=== PATIENT | female | born 1960 | race Two or more races ===

== ENCOUNTER 2021-07-27 21:51 | Inpatient (IN) | payer MEDICARE, OTHER ==
[~2021-07-27] VITALS: Ht 162.6 cm; Wt 823.3 kg
[2021-07-27 23:15] LABS: Basophils # (auto) 0.1 10 ^3/uL (0-0.2); Basophils % (auto) 0.9 % (0.0-2.0); Eosinophils # (auto) 0.1 10 ^3/uL (0-0.8); Eosinophils % (auto) 1.5 % (0.0-7.0); Hematocrit 43.5 % (36.0-46.0); Hemoglobin 14.7 g/dL (12.2-16.2); Lymphocytes # (auto) 0.9 10 ^3/uL (0.4-5.4); Lymphocytes % (auto) 12.6 % (10.0-50.0); Mean Corpuscular Hemoglobin 32.7 pg (28.0-32.0); Mean Corpuscular Hgb Conc. 33.8 g/dL (32.0-36.0); Mean Corpuscular Volume 96.9 fL (80.0-100.0); Monocytes # (auto) 0.6 10 ^3/uL (0-1.3); Monocytes % (auto) 8.4 % (0.0-12.0); Neutrophils # (auto) 5.4 10 ^3/uL (1.6-8.6); Neutrophils % (auto) 76.6 % (37.0-80.0); Nucleated Red Blood Cells % 0.1 %; Red Blood Cells 4.48 10^6/uL (4.0-5.20); Red Cell Distribution Width 13.6 % (11.8-14.3); White Blood Cell 7.1 10^3/uL (4.4-10.8)
[2021-07-27] MEDS ORDERED: MORPHINE SULFATE 4 MG/ML SYR/VIAL IV ONE (23:15)
[2021-07-27] MEDS ORDERED: ONDANSETRON HCL 4 MG/2 ML VIAL IV ONE (23:15)
[2021-07-27] MEDS ORDERED: IODIXANOL 320MG/ML 100ML BTL IV ONE (23:25)
[2021-07-27 23:31] LABS: Albumin 3.5 g/dL (3.4-5.0); BUN/Creatinine Ratio 17.5; Calcium 9.6 mg/dL (8.5-10.1); Potassium 4.3 mmol/L (3.5-5.1)
[2021-07-27 23:36] LABS: Bilirubin, Total 1.4 mg/dL (0.2-1.0); Total Protein 7.8 g/dL (6.4-8.2)
[2021-07-28 00:52] LABS: INR 1.07 (0.9-1.15); Partial Thromboplastin Time 24.5 sec (23.6-33.0)
[2021-07-28 03:39] LABS: Urine Bacteria NONE SEEN /hpf (None Seen); Urine Blood Negative /uL (Negative); Urine Mucus FEW (None Seen); Urine WBC 4 /hpf (0 - 5)
[2021-07-28 03:40] LABS: Urine Specific Gravity > 1.050 (1.001-1.035)
[2021-07-28] MEDS ORDERED: MORPHINE SULFATE 4 MG/ML SYR/VIAL IV ONE ×2 (03:45→08:00)
[2021-07-28] MEDS ORDERED: ONDANSETRON HCL 4 MG/2 ML VIAL IV PRN (07:45)
[2021-07-28] MEDS ORDERED: MORPHINE SULFATE 4 MG/ML SYR/VIAL IV PRN (07:45)
[2021-07-28] MEDS ORDERED: DEXTROSE (50%) 50ML SYRG IV PRN (07:45)
[2021-07-28] MEDS ORDERED: NITROGLYCERIN 0.4 MG SL TAB SL PRN (07:45)
[2021-07-28] MEDS ORDERED: MORPHINE SULFATE INJECTION 2 MG/ML SYRG IV PRN (07:45)
[2021-07-28] MEDS ORDERED: ONDANSETRON HCL 4 MG/2 ML VIAL IV ONE (08:00)
[2021-07-28] MEDS: FAMOTIDINE (10MG/ML) 2ML VL IV SCH (08:07)
[2021-07-28] MEDS: SODIUM CHLORIDE 0.9% 1,000 ML IV SCH (08:08)
[2021-07-28 08:41] LABS: Basophils # (auto) 0.1 10 ^3/uL (0-0.2); Basophils % (auto) 0.9 % (0.0-2.0); Eosinophils # (auto) 0.1 10 ^3/uL (0-0.8); Eosinophils % (auto) 0.8 % (0.0-7.0); Hemoglobin 14.4 g/dL (12.2-16.2); Lymphocytes # (auto) 0.8 10 ^3/uL (0.4-5.4); Mean Corpuscular Hemoglobin 33.2 pg (28.0-32.0); Mean Corpuscular Hgb Conc. 34.3 g/dL (32.0-36.0); Mean Corpuscular Volume 96.9 fL (80.0-100.0); Monocytes # (auto) 0.8 10 ^3/uL (0-1.3); Neutrophils % (auto) 78.3 % (37.0-80.0); Red Blood Cells 4.33 10^6/uL (4.0-5.20); Red Cell Distribution Width 13.7 % (11.8-14.3); White Blood Cell 7.6 10^3/uL (4.4-10.8)
[2021-07-28 08:55] LABS: Albumin 3.6 g/dL (3.4-5.0); Calcium 9.2 mg/dL (8.5-10.1)
[2021-07-28 08:58] LABS: BUN/Creatinine Ratio 18.7; Bilirubin, Total 1.9 mg/dL (0.2-1.0)
[2021-07-28] MEDS: InsuLIN REG 1unit/0.01ml Soln (100units/ml) SC SCH ×2 (11:29→18:20)
[2021-07-28] MEDS: ACCU-CHEK COMFORT CURVE STRIP VI SCH ×3 (11:30→22:56)
[2021-07-28] MEDS ORDERED: METH2.5T PO (17:22)
[2021-07-28] MEDS ORDERED: GLIP10TA9 PO (17:22)
[2021-07-28] MEDS ORDERED: PARO1TAB33 PO (17:22)
[2021-07-28] MEDS ORDERED: LIDO1PAD55 TOP (17:22)
[2021-07-28] MEDS ORDERED: INSLANTI SC (17:22)
[2021-07-28] MEDS ORDERED: OMEP-260 PO (17:22)
[2021-07-28] MEDS ORDERED: PROP10TA57 PO (17:22)
[2021-07-28] MEDS ORDERED: FOLI1TAB6 PO (17:22)
[2021-07-28] MEDS ORDERED: EZET10TA22 PO (17:22)
[2021-07-28] MEDS ORDERED: GAB100C PO (17:22)
[2021-07-28] MEDS ORDERED: SPIR50TA5 PO (17:22)
[2021-07-28] MEDS: levoFLOXacin 500MG 100 ML IV SCH (18:17)
[2021-07-28] MEDS ORDERED: InsuLIN REG 1unit/0.01ml Soln (100units/ml) SC SCH (22:00)
[2021-07-28 22:47] VITALS: BP 113/56
[2021-07-28] MEDS: metroNIDAZOLE 500MG/100ML 100 ML IV SCH (22:56)
[2021-07-29] MEDS: SODIUM CHLORIDE 0.9% 1,000 ML IV SCH (00:25)
[2021-07-29 05:28] VITALS: BP 106/63
[2021-07-29 05:31] VITALS: BP 101/61
[2021-07-29] MEDS: metroNIDAZOLE 500MG/100ML 100 ML IV SCH ×2 (05:42→14:00)
[2021-07-29 06:35] LABS: Basophils # (auto) 0 10 ^3/uL (0-0.2); Basophils % (auto) 0.8 % (0.0-2.0); Eosinophils # (auto) 0.1 10 ^3/uL (0-0.8); Eosinophils % (auto) 3.1 % (0.0-7.0); Hemoglobin 13.3 g/dL (12.2-16.2); Lymphocytes # (auto) 0.9 10 ^3/uL (0.4-5.4); Lymphocytes % (auto) 18.9 % (10.0-50.0); Mean Corpuscular Hemoglobin 33.1 pg (28.0-32.0); Mean Corpuscular Volume 97.1 fL (80.0-100.0); Monocytes # (auto) 0.4 10 ^3/uL (0-1.3); Monocytes % (auto) 9.1 % (0.0-12.0); Neutrophils # (auto) 3.2 10 ^3/uL (1.6-8.6); Neutrophils % (auto) 68.1 % (37.0-80.0); Nucleated Red Blood Cells % 0.1 %; Red Blood Cells 4.01 10^6/uL (4.0-5.20); Red Cell Distribution Width 13.5 % (11.8-14.3); White Blood Cell 4.7 10^3/uL (4.4-10.8)
[2021-07-29 06:46] VITALS: BP 101/61
[2021-07-29 06:54] LABS: Potassium 3.5 mmol/L (3.5-5.1)
[2021-07-29 06:59] LABS: Albumin 2.9 g/dL (3.4-5.0); BUN/Creatinine Ratio 22.2; Calcium 8.4 mg/dL (8.5-10.1)
[2021-07-29] MEDS: InsuLIN REG 1unit/0.01ml Soln (100units/ml) SC SCH ×2 (07:00→12:23)
[2021-07-29 07:06] LABS: Bilirubin, Total 2.5 mg/dL (0.2-1.0); Total Protein 6.1 g/dL (6.4-8.2)
[2021-07-29] MEDS: ACCU-CHEK COMFORT CURVE STRIP VI SCH ×2 (07:06→12:23)
[2021-07-29 09:00] VITALS: BP 109/78
[2021-07-29] MEDS: levoFLOXacin 500MG 100 ML IV SCH (09:20)
[2021-07-29] MEDS: FAMOTIDINE (10MG/ML) 2ML VL IV SCH (09:21)
[2021-07-29 13:00] VITALS: BP 110/58
[2021-07-31 11:00] LABS: Hepatitis B Surface Antibody Negative (Negative)
[2021-07-31 11:36] LABS: Hepatitis A Total Antibody Negative (Negative)
[2021-07-31 13:03] LABS: Hepatitis C Antibody Negative (Negative)
== END 2021-07-29 15:21 | disposition home or self-care (01) | DRG 446 ==
LOC: ER 21:51 → OVERFLOW 07-28 07:42 → WEST WING 07-28 17:23
PROVIDERS: ADMIT Nurse Practitioner Family; ATTEND Internal Medicine
DX: K80.20 Calculus of gallbladder without cholecystitis without obstruction (principal); E11.9 Type 2 diabetes mellitus without complications; I10 Essential (primary) hypertension; K74.60 Unspecified cirrhosis of liver; R79.89 Other specified abnormal findings of blood chemistry; R74.8 Abnormal levels of other serum enzymes; Z20.822 Contact with and (suspected) exposure to COVID-19; Z83.3 Family history of diabetes mellitus; Z82.3 Family history of stroke
CPT/HCPCS: 36415; 74177; 76705; 78226; 80053; 81001; 82140; 82962; 83036; 83605; 83690; 83735; 84484; 85025; 85610; 85730; 86704; 86706; 86708; 86803; 87340; 93005; 96361; 96374; 96375; 96376; G0378; J1815; J1956; J2405; J3490; Q9967